=== PATIENT | female | born 1965 | race Caucasian/White ===

== ENCOUNTER → 2017-02-03 | Outpatient (CLI) | payer SELFPAY ==
[2017-02-03 10:26] LABS: CHLORIDE,CL 108 mmol/L (98-110); SODIUM,NA 139 mmol/L (136-146)
== END ==
LOC: MW.CHFP 08:48
PROVIDERS: ATTEND Physician Assistant
DX: E11.9 Type 2 diabetes mellitus without complications (principal)
CPT/HCPCS: 36415; 80053; 80061; 83036

== ENCOUNTER → 2017-03-04 | Outpatient (CLI) | payer OTHER ==
--- NOTE | 2017-03-05 17:15 | MR ---
EXAMINATION: MRI of the left shoulder HISTORY: Pain COMPARISON: None TECHNIQUE: Multiplanar and multisequence images obtained of the left shoulder without contrast. FINDINGS: There is a type II acromion. Mild acromioclavicular osteoarthritic changes are noted. The supraspinatus tendon appears thinned with prominent atrophy of the supraspinatus muscle. Infraspinat us and teres minor tendons appear intact. The long head biceps tendon is present within the bicipita l groove. The overlying subscapularis tendon appears normal. There is mildly increased signal within the proximal long head biceps tendon. Inferior glenohumeral ligament appears intact. No joint effus ion. The articular surfaces are preserved. No suspicious bone marrow signal. IMPRESSION: 1. Notably thickened supraspinatus tendon with severe underlying atrophy. There is likely underlying tearing which is not well characterized. 2. Mild long head biceps tendinopathy. 3. Mild acromioclavicular osteoarthritic changes.
== END ==
LOC: MW.MRI 15:05
PROVIDERS: ATTEND Anesthesiology
DX: M25.512 Pain in left shoulder (principal)
CPT/HCPCS: 73221-26-LT; 73221-LT